=== PATIENT | male | born 1950 | race Caucasian/White ===

== ENCOUNTER 2017-04-14 09:38 | Outpatient (CLI) | payer MEDICARE ==
--- NOTE | 2017-04-14 14:51 | RAD ---
PA AND LATERAL VIEWS OF THE CHEST: HISTORY: Preoperative evaluation. FINDINGS: The heart size is normal. There is linear atelectasis versus scar versus mild infiltrate in the left lung base. CLINICAL CORRE LATION IS RECOMMENDED. No lobar consolidation, pneumothoraces, or pleural effusions are seen. Degenerative changes are pr esent in the spine. There are postop changes of bilateral shoulder arthroplasty. POS: OFF
[2017-04-14 15:04] LABS: #Basophils 0.1 thou/uL (0.0-0.2); #Eosinphils 0.2 thou/uL (0.0-0.7); #Lymphocytes 1.3 thou/uL (1.20-3.40); #Monocytes 0.8 thou/uL (0.11-0.59); #Neutrophils 4.9 thou/uL (1.40-6.50); %Basophils 0.8 % (0.0-1.0); %Eosinophils 2.4 % (0.0-10.0); %Monocytes 11.1 % (0.0-10.0); %Neutrophils 67.7 % (42.0-75.0); Mean Corpuscular HGB CONC 32.8 g/dL (32.0-36.0); Mean Corpuscular Hemoglobin 31.5 pg (27.0-31.0); Mean Corpuscular Volume 96.2 fl (80.0-94.0); Mean Platelet Volume 7.3 fL (7.4-10.4); Platelet Count 266 thou/uL (130-400); RBC Distribution Width 12.2 % (11.5-14.5); Red Blood Cell (RBC) Count 5.08 mill/uL (4.70-6.10); White Blood Cell (WBC) Count 7.2 thou/uL (4.8-10.8)
[2017-04-14 15:10] LABS: Bilirubin Negative (Negative); Blood, Urine Negative (Negative); Clarity CLEAR (Clear); Glucose, Urine (Dipstick) 500 mg/dL (Negative); Leukocyte Negative (Negative); Nitrite Negative (Negative); Protein, Urine (Dipstick) Negative (Neg-Trace); Specific Gravity, Urine 1.013 (1.002-1.036); Urobilinogen 0.2 mg/dL (0.2-1.0)
[2017-04-14 15:13] LABS: Prothrombin Time 12.8 SEC (12.0-14.7)
[2017-04-14 15:15] LABS: Bacteria/HPF None Seen HPF (None Seen); Hyaline Casts/LPF 0-3 HYALINE CAST LPF (0-3 Hyaline); RBC/HPF 0-3 HPF (0-3); Squamous Epithelial None Seen HPF (0-3); WBC/HPF None Seen HPF (0-3)
[2017-04-14 15:18] LABS: PTT 32.1 SEC (22.9-36.1)
[2017-04-14 15:25] LABS: Anion Gap 15 mmol/L (10-20); BUN (Urea Nitrogen) 22 mg/dL (8.4-25.7); Calc. Creatinine Clearance 0 mL/min (70-130); Calcium 10.2 mg/dL (7.8-10.44); Carbon Dioxide 28 mmol/L (23-31); Chloride 103 mmol/L (98-107); Estimated GFR-MDRD 71; Glucose 86 mg/dL (80-115); Potassium 4.6 mmol/L (3.5-5.1); Sodium 141 mmol/L (136-145)
--- NOTE | 2017-04-23 19:28 | EKG ---
Test Reason : Blood Pressure : / mmHG Vent. Rate : 064 BPM Atrial Rate : 064 BPM P-R Int : 210 ms QRS Dur : 092 ms QT Int : 400 ms P-R-T Axes : 002 -08 068 degrees QTc Int : 412 ms Sinus rhythm with 1st degree A-V block Otherwise normal ECG No previous ECGs available Confirmed by PUMA VANESSA (2) on 04/23/2017 7:28:43 PM Referred By: BENJIE Confirmed By:PUMA VANESSA
== END 2017-04-14 09:39 | disposition home or self-care (01) ==
LOC: LABBT 09:38
PROVIDERS: ATTEND Orthopaedic Surgery
DX: Z01.818 Encounter for other preprocedural examination (principal); M17.11 Unilateral primary osteoarthritis, right knee; M47.896 Other spondylosis, lumbar region
CPT/HCPCS: 71046; 80048; 81001; 85025; 85610; 85730; 86850; 86900; 86901; 87081; 93005; 93010

== ENCOUNTER 2017-04-21 07:18 | Inpatient (IN) | payer MEDICARE ==
[2017-04-21] MEDS ORDERED: CEFAZOLIN/Water 2 GM/20 ML SYRINGE ONE (07:37)
[2017-04-21] MEDS ORDERED: Tranexamic Acid 1,000 MG/100 ML BAG ONE ×2 (07:37→13:29)
[2017-04-21] MEDS ORDERED: Vancomycin HCl 1.5 GM in Sodium Chloride 0.9% 250 ML 300 ML IVPB SCH (08:00)
[2017-04-21] MEDS ORDERED: Ondansetron HCl/PF 4 MG/2 ML Vial IVP PRN ×2 (08:48→11:27)
[2017-04-21] MEDS ORDERED: Promethazine HCl 25 MG/ML VIAL IM PRN ×2 (08:48→11:27)
[2017-04-21] MEDS ORDERED: traMADol HCl 50 MG TAB PO PRN (08:48)
[2017-04-21] MEDS ORDERED: Fentanyl 100 MCG/2 ML VIAL SLOW IVP PRN ×2 (08:48)
[2017-04-21] MEDS ORDERED: diphenhydrAMINE 25 MG CAP PO PRN (08:48)
[2017-04-21] MEDS ORDERED: Zolpidem Tartrate 5 MG TAB PO PRN (08:48)
[2017-04-21] MEDS ORDERED: oxyCODONE 5 MG TAB PO PRN ×2 (08:50)
[2017-04-21] MEDS ORDERED: ERGOCALCIFEROL 2000 UNIT PO SCH (09:00)
[2017-04-21] MEDS ORDERED: Non-Formulary Item 1 EACH (Metformin Hcl [Metformin Hcl] 1 TAB) PO SCH (09:00)
[2017-04-21] MEDS ORDERED: CANAGLIFLOZIN 300 MG PO SCH (09:00)
[2017-04-21] MEDS ORDERED: DILTIAZEM HCL PO SCH (09:00)
[2017-04-21] MEDS ORDERED: INSULIN DEGLUDEC SC SCH (09:00)
[2017-04-21] MEDS ORDERED: Tranexamic Acid 1,000 MG in Sodium Chloride 0.9% 100 ML IVPB SCH (09:00)
[2017-04-21] MEDS ORDERED: Bupivacaine/Epinephrine 0.25% 30 ML VIAL ONE (09:46)
[2017-04-21] MEDS ORDERED: Fentanyl 100 MCG/2 ML VIAL ONE ×4 (10:44→17:30)
[2017-04-21] MEDS ORDERED: HYDROmorphone 2 MG/ML VIAL SLOW IVP PRN (11:27)
[2017-04-21] MEDS ORDERED: Promethazine HCl 25 MG/ML VIAL SLOW IVP PRN (11:27)
[2017-04-21] MEDS ORDERED: HYDROmorphone 0.5 MG/0.5 ML SYRINGE ONE (11:57)
[2017-04-21] MEDS ORDERED: Ketorolac Tromethamine 30 MG/ML VIAL ONE (13:29)
--- NOTE | 2017-04-21 14:38 | RAD ---
TWO VIEWS RIGHT KNEE: Date: 04-21-17 History: Right total knee prosthesis. FINDINGS: Post-surgical change related to right total knee prosthesis noted. There is subcutaneous edema and em physema about the knee related to post-surgical change. There is no hardware complication. No fractur e or dislocation is seen. Vascular calcifications are seen posterior to the knee. IMPRESSION: Post-surgical change related to placement of right total knee prosthesis. POS: [facility]
--- NOTE | 2017-04-21 14:54 | OP ---
PREOPERATIVE DIAGNOSIS: Degenerative joint disease, right knee. POSTOPERATIVE DIAGNOSIS: Degenerative joint disease, right knee. SURGEON: Florentino Hernandez M.D. ANESTHESIA: General. BLOOD LOSS: Minimal. SPECIMEN: None. DRAINS: None. COMPLICATIONS: None. IMPLANTS USED: [employer] Triathlon 5 femur, 5 tibia with a 5 x 11 CSX3 polyethylene, A32 patella. PROCEDURE IN DETAIL: After informed consent was obtained in the preoperative holding area. The sylvain ent was taken to the operative suite where general anesthesia was induced. Once adequate level of ge neral anesthesia was obtained, the patient was positioned and a well-padded tourniquet was placed gary und the right proximal thigh. The right lower extremity was then prepped and draped in the usual pearl rile fashion. Prior to exsanguination, a time out was called and all members of the surgical team ag chencho upon site, surgeon, and patient. The extremity was then exsanguinated and the tourniquet was ra ised. A midline longitudinal incision was then made directly over the patella extending two fingerbr eadths above the superior pole of the patella and two fingerbreadths inferior to the inferior patella r pole of the patella. Deeper subcutaneous layers were dissected sharply and local bleeding was cont rolled with Bovie electrocautery. A quad tendon longitudinal split was then made sharply and a media n parapatellar arthrotomy was carried out both sharp and with Bovie electrocautery, carried down to o ne fingerbreadth medial to the tibial tubercle. The knee was then placed into flexion and the patell a was everted nicely, and a copious fat pad ectomy was performed allowing for greater exposure of the tibia. The computer-assisted distal femoral fiducial was then placed and pinned firmly, and the dis behzad femoral cutting guide was pinned firmly into place. The oscillating saw was then used to remove the appropriate amount of bone. The 4-in-1 cutting block was then placed on the distal femur and the oscillating saw was used to remove the appropriate amount of bone off of the anterior, posterior, an d chamfer cuts. After completion of bone cuts, the anterior cruciate ligament was resected sharply a nd the posterior cruciate ligament retractor was placed and the tibia was subluxed for better exposur e. Partial meniscectomies were carried out, and the tibial computer-assisted fiducial was pinned, an d the cutting guide was placed. Oscillating saw was then used to remove the bone with Hohmann retrac tors used to take care and protect the collateral ligaments. After the tibial resection was performe d, a laminar eyelet row marker was placed in between the freshened bone cuts. The knee placed at 90 degrees a nd further bilateral meniscectomies were carried out, and the curved osteotome and curettage was used to remove any excess bone spurs in the posterior compartment. Exparel was then injected into the po sterior capsule, kely-articular synovia, pre-patella synovia, and musculature surrounding the capsule . The trial femoral component, tibial baseplate were placed with the appropriate polyethylene trial insert with an appropriate polyethylene spacer and patellar button. The knee was taken through full range of motion with flexion and extension from 0-90 degrees and patellar broach squarely in the troc hlea without any squinting or subluxation noted. The knee was also stable to varus and valgus stress ing at 0, 15, 45, and 90 degrees of flexion. The drawer was negative. All trial components were then removed and the keel punch was used to provide the appropriate defect in the tibia with a mallet. T he freshened bone cuts were copiously irrigated with pulsatile lavage of about 1-1/2 liters to remove all excess debris. The freshened bone cuts were then dried and with suction and lap sponge. The kn ee was placed in flexion and retractors were placed to provide access to all bone cuts. Tobramycin i mpregnated methyl methacrylate cement was then placed on the freshened bone cuts and implants which w ere malleted firmly into place. Curettage and [place] elevators were used to remove any excess bone ce ment. The knee was placed into full extension and the patellar button was placed under compression, and the cement was allowed to cure. Once completed, the components were again taken through full ran ge of motion and copious irrigation of the knee was carried out with another liter of normal saline. All components were inspected fully with full range of motion and varus and valgus stressing. There was no laxity noted and full extension was observed clinically. Primary closure was accomplished wit h #2 interrupted Vicryl stitch of the arthrotomy defect. This was oversewn with a #2 running Quill b arbed stitch. The gravitational platelet system was then injected into the arthrotomy prior to closu re. The subcutaneous layer was then closed with a running 0 barbed Monocryl stitch and skin closure accomplished with a running subcuticular 3-0 Monocryl barbed Quill stitch and augmented with cement o n the skin. Tourniquet was lowered. Good spontaneous return of distal pulses was noted clinically a nd a sterile dressing was applied to the incision. The procedure was terminated without any complica tions. The patient was awakened in the operative suite and the tourniquet was removed, and the patie nt was taken to the recovery room in stable condition.
[2017-04-21] MEDS ORDERED: Propofol 200 MG/20 ML VIAL ONE (15:40)
[2017-04-21] MEDS ORDERED: Ondansetron HCl/PF 4 MG/2 ML Vial ONE (15:40)
[2017-04-21] MEDS ORDERED: Lidocaine 1% PF 5 ML VIAL ONE (15:40)
[2017-04-21] MEDS ORDERED: ePHEDrine/0.9% NaCl/PF SYRINGE 50 mg/10 ml ONE (15:40)
[2017-04-21] MEDS ORDERED: Dexamethasone 20 MG/5 ML VIAL ONE (15:40)
[2017-04-21] MEDS ORDERED: Labetalol HCl 100 MG/20 ML VIAL ONE (15:41)
[2017-04-21] MEDS ORDERED: Gabapentin 300 MG CAP ONE (16:52)
[2017-04-21] MEDS ORDERED: Aspirin 325 mg Enteric Coated Tablet ONE (17:11)
[2017-04-21] MEDS: Sodium Chloride 0.9% 1,000 ML IV SCH (20:00)
[2017-04-21] MEDS ORDERED: Rosuvastatin 20 MG TAB PO SCH (21:00)
[2017-04-21] MEDS ORDERED: Lisinopril 20 MG TAB PO SCH (21:00)
[2017-04-21] MEDS ORDERED: clonazePAM 1 MG TAB PO SCH (21:00)
[2017-04-21] MEDS ORDERED: Aspirin 81 mg Enteric Coated Tablet PO SCH (21:00)
[2017-04-21] MEDS: Ferrous Gluconate 324 MG TAB PO SCH (21:11)
[2017-04-21] MEDS: Aspirin 325 MG TAB PO SCH (21:11)
[2017-04-21] MEDS: metFORMIN 500 MG TAB PO SCH (21:12)
[2017-04-21] MEDS: Senokot S 8.6-50 MG TAB PO SCH (21:12)
[2017-04-21] MEDS: Gabapentin 300 MG CAP PO SCH (21:12)
[2017-04-21] MEDS: traMADol HCl 50 MG TAB PO SCH (21:14)
[2017-04-21] MEDS: Ketorolac Tromethamine 30 MG/ML VIAL IVP SCH (21:15)
[2017-04-21] MEDS: CEFAZOLIN/Water 2 GM/20 ML SYRINGE SLOW IVP SCH (22:01)
--- NOTE | 2017-04-22 00:12 | CON ---
DATE OF CONSULTATION: 04/21/2017 REASON FOR CONSULTATION: Diabetes management. HISTORY OF PRESENT ILLNESS: This is a 67-year-old male who is currently in the hospital status post right total knee arthroplasty. He has a known history of hypertension, hyperlipidemia, peripheral va scular disease, osteoarthritis, obesity, anxiety. The patient also has a polycythemic disorder for w hich he is currently undergoing evaluation and management on an outpatient basis with Hematology. At the time of my evaluation, the patient has no new complaints. He is currently status post right-s ided total knee arthroplasty and reports that his pain is reasonably controlled. The patient is very knowledgeable regarding his home medication, he is able to recount that he has not missed any of his doses other than those that were intentionally held before his procedure. The patient would like to know whether or not his medications will be continued. The patient does not recall any recent joshi es to his home medications within the last month and is able to produce a medication reconciliation l ist. PAST MEDICAL HISTORY: 1. As per above. 2. Hypertension. 3. Hyperlipidemia. 4. Peripheral vascular disease. 5. Polycythemia. 6. Type 2 diabetes. 7. Osteoarthritis. 8. Obesity. 9. Status post reverse left shoulder replacement in 2014. 10. Status post reverse right shoulder replacement in 2013. 11. Status post hydrocele repair of the left testicle in 2012. 12. Status post left shoulder replacement in 2011. 13. Status post right hip replacement in 2009. 14. Status post lumbar fusion of L3-L6 in 2006. HOME MEDICATIONS: Please see the EMR for full details. His list includes the following, diclofenac, tramadol, Tresiba, Victoza, Invokana, metformin, vitamin D2, Neurontin, aspirin, Cardizem-CD, Zestri l, Klonopin, Crestor. FAMILY HISTORY: The patient does not report a history of orthopedic issues. SOCIAL HISTORY: The patient denies any alcohol, illicit drugs or tobacco use. PHYSICAL EXAMINATION: GENERAL: Patient is awake, alert, appropriate, lying in the hospital bed in no acute distress, conve rsant. HEENT: Moist mucous membranes, equal ocular motions are intact. Pupils equal and reactive. Normoce phalic, atraumatic. LUNGS: Clear to auscultation bilaterally, no wheezes, rales, or rhonchi. No conversational dyspnea. CARDIOVASCULAR: S1, S2. No murmurs, rubs or gallops. Pulses 2+ bilateral upper extremities, no pit ting pedal edema. ABDOMEN: Positive bowel sounds, soft, nontender to palpation. LABORATORY DATA AND IMAGING: [id number] glucose is 181. ASSESSMENT AND PLAN: 1. A 67-year-old male who is being requested for followup status post right total knee arthroplasty for medical management of his comorbid issues. 2. Status post right total knee arthroplasty. I appreciate orthopedic request for consultation. Ingrid robbins as per Orthopedic Surgery. 3. Type 2 diabetes. Resume the patient's home regimen, recheck a BMP in the morning. 4. Hypertension. 5. Okay to resume home regimen. Again, check BMP in the morning with close monitoring of renal func tion, strict intake and output. 6. Anxiety and depression. Continue the patient on his home regimen. Thank you for asking us to consult and we will follow along with you.
[2017-04-22 05:41] LABS: Hemoglobin 14.1 g/dL (14.0-18.0); Mean Corpuscular HGB CONC 33.3 g/dL (32.0-36.0); Mean Platelet Volume 7.2 fL (7.4-10.4); Platelet Count 251 thou/uL (130-400); RBC Distribution Width 12.2 % (11.5-14.5); Red Blood Cell (RBC) Count 4.41 mill/uL (4.70-6.10); White Blood Cell (WBC) Count 10.4 thou/uL (4.8-10.8)
[2017-04-22] MEDS: Sodium Chloride 0.9% 1,000 ML IV SCH ×3 (05:41→17:05)
[2017-04-22] MEDS: Ketorolac Tromethamine 30 MG/ML VIAL IVP SCH ×3 (05:48→14:09)
[2017-04-22 06:20] LABS: Anion Gap 14 mmol/L (10-20); BUN (Urea Nitrogen) 28 mg/dL (8.4-25.7); Calc. Creatinine Clearance 94 mL/min (70-130); Carbon Dioxide 24 mmol/L (23-31); Chloride 104 mmol/L (98-107); Estimated GFR-MDRD 66; Glucose 170 mg/dL (80-115); Potassium 4.8 mmol/L (3.5-5.1); Sodium 137 mmol/L (136-145)
[2017-04-22] MEDS: Aspirin 325 MG TAB PO SCH ×2 (08:07→08:13)
[2017-04-22] MEDS: Senokot S 8.6-50 MG TAB PO SCH ×2 (08:07→08:13)
[2017-04-22] MEDS: Ferrous Gluconate 324 MG TAB PO SCH ×2 (08:08→08:13)
[2017-04-22] MEDS: Gabapentin 300 MG CAP PO SCH ×2 (08:08→08:19)
[2017-04-22] MEDS: metFORMIN 500 MG TAB PO SCH (08:09)
[2017-04-22] MEDS: CEFAZOLIN/Water 2 GM/20 ML SYRINGE SLOW IVP SCH ×3 (08:11→10:16)
[2017-04-22] MEDS: Multivitamin W/ Minerals 1 TAB PO SCH ×2 (08:13→08:17)
[2017-04-22] MEDS: traMADol HCl 50 MG TAB PO SCH ×3 (08:14→17:05)
[2017-04-22] MEDS ORDERED: ERGOCALCIFEROL 2000 UNIT PO SCH (09:00)
[2017-04-22] MEDS ORDERED: Dextrose 50% Abboject 50 ML SYRINGE SLOW IVP PRN (09:38)
[2017-04-22] MEDS ORDERED: Insulin Regular 300 UNITS/3 ML VIAL SC PRN ×2 (09:38)
[2017-04-22] MEDS ORDERED: Dextrose 5% in Water 1,000 ML IV PRN (09:38)
[2017-04-22 11:20] VITALS: BMI 34.2
[2017-04-22 12:55] VITALS: BP 132/69; TEMP 98.3
== END 2017-04-22 16:07 | disposition home or self-care (01) | DRG 470 ==
LOC: SDC 07:18 → EDSTATUS 08:00 → SJJU 08:48
PROVIDERS: ADMIT Orthopaedic Surgery; ATTEND Orthopaedic Surgery
PROC: 0SRC0J9 Replacement of Right Knee Joint with Synthetic Substitute, Cemented, Open Approach (ICD-10-PCS; principal; 2017-04-21)
DX: M17.0 Bilateral primary osteoarthritis of knee (principal); E11.51 Type 2 diabetes mellitus with diabetic peripheral angiopathy without gangrene; D75.1 Secondary polycythemia; E78.5 Hyperlipidemia, unspecified; E66.9 Obesity, unspecified; Z68.34 Body mass index [BMI] 34.0-34.9, adult; F41.9 Anxiety disorder, unspecified; I10 Essential (primary) hypertension; F32.9 Major depressive disorder, single episode, unspecified; Z98.1 Arthrodesis status; Z96.641 Presence of right artificial hip joint
CPT/HCPCS: 36415; 36416; 80048; 85027; C1713; C1776; G8978-GP-CJ; G8979-GP-CJ; J1100; J1170; J1815; J1885; J2001; J2405; J2704; J3010; J3370; J7050

== ENCOUNTER 2018-01-04 06:59 | Outpatient (CLI) | payer MEDICARE ==
--- NOTE | 2018-01-04 08:51 | ULT ---
COMPLETE ABDOMEN ULTRASOUND: INDICATION: Polycythemia. COMPARISON: None. FINDINGS: The liver is diffusely echogenic. No focal hepatic lesion is evident. The visualized aorta, IVC, and visualized aspects of the pancreas appear within normal limits. There is sludge present within the gallbladder. The gallbladder wall is normal appearing measuring 2 .4 mm. No sonographic Barakat's sign is reported. The common bile duct measured 4.4 mm. The right kidney measures 11.2 x 6.8 x 5.4 cm. The left kidney measures 12.7 x 7.1 x 6.3 cm. The spleen measured 12.3 cm. IMPRESSION: 1. Fatty liver. 2. Gallbladder sludge. POS: [facility]
== END 2018-01-04 07:00 | disposition home or self-care (01) ==
LOC: SCSULT 06:59
PROVIDERS: ATTEND Internal Medicine Medical Oncology
DX: R16.1 Splenomegaly, not elsewhere classified (principal); D45 Polycythemia vera; K76.0 Fatty (change of) liver, not elsewhere classified; K82.8 Other specified diseases of gallbladder
CPT/HCPCS: 76700

== ENCOUNTER 2018-05-06 11:52 | Outpatient (CLI) | payer MEDICARE ==
--- NOTE | 2018-05-06 13:29 | ULT ---
ULTRASOUND SOFT TISSUE OTHER: Date: 05/06/18 HISTORY: Adenopathy. COMPARISON: Ultrasound from 2017. FINDINGS: There are normal appearing lymph nodes in the left axilla, with normal fatty hilum. No abnormal hypoe choic mass. Normal thin cortex. IMPRESSION: Normal left axillary lymph nodes. POS: OFF
== END 2018-05-06 11:53 | disposition home or self-care (01) ==
LOC: BICULT 11:52
PROVIDERS: ATTEND Internal Medicine Medical Oncology
DX: Z03.89 Encounter for observation for other suspected diseases and conditions ruled out (principal)
CPT/HCPCS: 76999

== ENCOUNTER 2021-02-25 14:14 | Outpatient (CLI) | payer MEDICARE ==
[2021-02-25 15:48] LABS: Hemoglobin 14.6 g/dL (13.5-17.5); Mean Corpuscular HGB CONC 30.8 g/dL (32.0-36.0); Mean Corpuscular Hemoglobin 24.1 pg (27.0-33.0); Mean Corpuscular Volume 78.1 fl (81.2-95.1); Mean Platelet Volume 10.3 fl (7.4-10.4); Platelet Count 238 10x3/uL (150-450); RBC Distribution Width 19.2 % (11.5-14.5); Red Blood Cell (RBC) Count 6.07 10x6/uL (4.32-5.72); White Blood Cell (WBC) Count 7.1 10x3/uL (3.5-10.5)
[2021-02-25 16:04] LABS: INR-International Normal Ratio 1.1; Prothrombin Time 11.9 sec (9.5-12.1)
[2021-02-25 16:17] LABS: Anion Gap 15 mmol/L (10-20); BUN (Urea Nitrogen) 22 mg/dL (8.4-25.7); Calc. Creatinine Clearance 0 mL/min (70-130); Calcium 9.2 mg/dL (7.8-10.44); Carbon Dioxide 23 mmol/L (23-31); Chloride 107 mmol/L (98-107); Glucose 152 mg/dL (80-115); Potassium 4.7 mmol/L (3.5-5.1); Sodium 140 mmol/L (136-145)
[2021-02-26 13:29] LABS: SARS-CoV-2 PCR by NAA Not Detected (NotDetected)
== END 2021-02-25 14:15 | disposition home or self-care (01) ==
LOC: LABBT 14:14
PROVIDERS: ATTEND Internal Medicine Cardiovascular Disease
DX: Z01.812 Encounter for preprocedural laboratory examination (principal); Z20.822 Contact with and (suspected) exposure to COVID-19
CPT/HCPCS: 80048; 85027; 85610; U0003; U0005

== ENCOUNTER 2021-02-28 09:57 | Day surgery (SDC) | payer MEDICARE ==
[2021-02-27 10:11] VITALS: BMI 29.7
[2021-02-28] MEDS ORDERED: PROPOFOL 20 ML ONE (12:06)
== END 2021-02-28 13:43 | disposition home or self-care (01) ==
LOC: CCL 09:57
PROVIDERS: ATTEND Internal Medicine Cardiovascular Disease
PROC: B246ZZ4 Ultrasonography of Right and Left Heart, Transesophageal (ICD-10-PCS; principal; 2021-02-28)
PROC: B24CZZ4 Ultrasonography of Pericardium, Transesophageal (ICD-10-PCS; 2021-02-28)
DX: I48.19 Other persistent atrial fibrillation (principal); I11.9 Hypertensive heart disease without heart failure; I70.0 Atherosclerosis of aorta; E78.5 Hyperlipidemia, unspecified; M10.9 Gout, unspecified; E11.9 Type 2 diabetes mellitus without complications; I25.10 Atherosclerotic heart disease of native coronary artery without angina pectoris; Z79.01 Long term (current) use of anticoagulants; Z79.4 Long term (current) use of insulin; Z79.899 Other long term (current) drug therapy; Z95.1 Presence of aortocoronary bypass graft; Z98.1 Arthrodesis status
CPT/HCPCS: 93312; J2704

== ENCOUNTER 2021-12-12 10:07 | Emergency (ER) | payer OTHER, MEDICARE ==
[2021-12-12] MEDS ORDERED: Fentanyl 100 MCG/2 ML VIAL ONE (10:15)
[2021-12-12] MEDS ORDERED: Ondansetron PF 4 MG/2 ML Vial ONE (10:15)
[2021-12-12] MEDS ORDERED: Bacitracin 1 PK ONE (11:25)
[2021-12-12] MEDS ORDERED: Lidocaine 1% PF 5 ML VIAL ONE ×2 (12:07→12:29)
[2021-12-12] MEDS ORDERED: Boostrix 0.5 ML (Tdap) VIAL (>/=7 yrs of age) ONE ×2 (12:09→12:20)
[2021-12-12] MEDS ORDERED: Iopamidol-370 76% 500 ML 1 ML ONE (14:37)
== END 2021-12-12 12:48 | disposition home or self-care (01) ==
LOC: ERS 10:07
DX: S01.01XA Laceration without foreign body of scalp, initial encounter (principal); S51.012A Laceration without foreign body of left elbow, initial encounter; V02.90XA Pedestrian on foot injured in collision with two- or three-wheeled motor vehicle, unspecified whether traffic or nontraffic accident, initial encounter
CPT/HCPCS: 12004; 70450; 71260; 72125; 74177; 90715; 96374; 96375; G0390; J2405; J3010; Q9967